=== PATIENT | female | born 1995 | race African-American/Black ===

== ENCOUNTER 2017-03-29 05:35 | Emergency (ER) | payer MEDICAID ==
[~2017-03-29] VITALS: Ht 165.1 cm; Wt 54.0 kg
[2017-03-29 06:40] VITALS: BP 128/89
== END 2017-03-29 06:43 | disposition home or self-care (01) ==
LOC: ER 05:35
DX: F32.9 Major depressive disorder, single episode, unspecified (principal); F10.10 Alcohol abuse, uncomplicated; Z71.6 Tobacco abuse counseling; F12.10 Cannabis abuse, uncomplicated; F17.200 Nicotine dependence, unspecified, uncomplicated
CPT/HCPCS: 93005; 99283; 99406